=== PATIENT | female | born 1990 | race Two or more races ===

== ENCOUNTER → 2025-03-06 | Outpatient (CLI) | payer MEDICAID, SELFPAY ==
--- NOTE | 2025-03-06 | XR_ITS ---
Examination: Cervical spine 3 views Technique one AP lateral coned AP odontoid cervical spine 3 views Date and time: March 06, 2025 12:20 PM INDICATIONS: Neck pain beginning 10 days ago. FINDINGS: Satisfactory alignment cervical vertebral bodies. No cervical fracture. Intact odontoid. No significant cervical disc narrowing Minimal cervical levoscoliosis which may be positional IMPRESSION: No cervical fracture or significant cervical disc narrowing
--- NOTE | 2025-03-06 | XR_ITS ---
Examination: Lumbar spine, 5 views Technique: Lumbar spine AP, lateral, coned lateral lower lumbar spine, bilateral obliques 5 views Exam date and time: March 06, 2025, 1214 hours INDICATIONS: March 06, 2025, 12:25 PM INDICATIONS: Low back pain beginning 6 months ago. FINDINGS: FINDINGS: Satisfactory alignment lumbar vertebral bodies. No lumbar fracture Mild lumbar spondylosis Mild to moderate disc narrowing L5-S1 No spondylolisthesis IMPRESSION: Mild to moderate degenerative disc disease L5-S1
== END | disposition home or self-care (01) ==
PROVIDERS: PCP Nurse Practitioner; Referring Provider Nurse Practitioner; Visit Provider Nurse Practitioner
DX: M54.2 Cervicalgia (principal); M51.370 Other intervertebral disc degeneration, lumbosacral region with discogenic back pain only
CPT/HCPCS: 72040; 72110

== ENCOUNTER → 2025-04-25 | Outpatient (CLI) | payer MEDICAID, SELFPAY ==
--- NOTE | 2025-04-25 11:30 | XR_ITS ---
EXAMINATION: Ultrasound soft tissue right lower back TECHNIQUE: Grayscale sonographic images soft tissue right lower back Date and time: April 25, 2025, 1146 hours INDICATIONS: Right lower back pain beginning 1 month ago FINDINGS: No cystic or solid mass noted IMPRESSION: No cystic or solid mass
== END | disposition home or self-care (01) ==
PROVIDERS: PCP Physician Assistant; Referring Provider Internal Medicine; Visit Provider Internal Medicine
DX: R22.2 Localized swelling, mass and lump, trunk (principal)
CPT/HCPCS: 76705

== ENCOUNTER 2025-07-08 09:11 | Outpatient (RCR) | payer MEDICAID, SELFPAY ==
--- NOTE | 2025-07-08 09:49 | PT.OIERPT ---
PT OP Initial Eval Patient Information Outpatient Physical Therapy Treatment Date: 07/08/25 Visit Reasons: BACK PAIN Medical Diagnosis: M51.362 Treatment Dx #1: LBP with radiculopathy Start of Care: 07/08/25 Date of Onset: 1 yr ago Smoking Status Smoking Status: Never smoker Initial Assessment Subjective: Pt is 34 yr old female who reports LBP that runs sometimes into the R LE. Increased pain with bending, sleeping when she wakes up and lifting things. PMH: gallbladder removal 2021 Imaging: Xray of L/S Mild to moderate degenerative disc disease L5-S1 Pt goal: less LBP Objective: Trunk ArOM: ? B SB 50% of normal with pain ? Extension: 20% with pain around L4-5, L5-S1 ? Flexion: 10 from floor with LBP ? B rotation: 60% with pain ? TTP: moderate paraspinals L5-S1 ? Neuro: R SLR: positive Assessment: ? Pt presents with trunk flexion sensitivity and overlying myofascial pain ? and TTP around L5-S1 consistent with ? lower lumbar disc bulge(s) with radiculopathy. Pt requires skilled therapy in order to decrease ? pain and improve sitting/standing tolerance and has fair rehab potential. Eval ?followed by [facility] printout. [employer] Term and [employer] Goals ? 1. Ind with HEP ? 2. Improved sitting/standing tolerance to 30 minutes with <=4/10 LBP ? 3. Decreased lower paraspinal TTP from mod to min 4. Improved HH chore tolerance to at least 30 minutes with <=3/10 LBP and no ?increase in LE ssx Treatment Plan 1. Manual therapy ? 2. Therex ? 3. Modalities as indicated, moist heat, ice, estim, mechanical traction Frequency and Duration: 1-2x a week for 12 visits. Will need more authorized visits after the 1 Rx that's authorized Certification Dates: 07/08/25 to 10/06/25 Procedure Charges OP PT Eval Mod Complex 30 minutes: Yes
== END 2025-07-16 23:59 | disposition home or self-care (01) ==
LOC: CPTX 09:11
PROVIDERS: PCP Nurse Practitioner; Referring Provider Nurse Practitioner; Visit Provider Nurse Practitioner
DX: M54.16 Radiculopathy, lumbar region (principal); M51.362 Other intervertebral disc degeneration, lumbar region with discogenic back pain and lower extremity pain
CPT/HCPCS: 97162